=== PATIENT | female | born 1945 | race African-American/Black ===

== ENCOUNTER → 2017-05-22 | Outpatient (CLI) | payer MEDICARE, OTHER | END | disposition home or self-care (01) | LOC: RADMN 15:56 | PROVIDERS: ATTEND Orthopaedic Surgery | DX: M17.0 Bilateral primary osteoarthritis of knee (principal); I70.202 Unspecified atherosclerosis of native arteries of extremities, left leg; I70.201 Unspecified atherosclerosis of native arteries of extremities, right leg ==

== ENCOUNTER 2022-01-26 11:28 | Emergency (ER) | payer MEDICARE, OTHER ==
[~2022-01-26] VITALS: Ht 165.1 cm; Wt 109.1 kg
[2022-01-26] MEDS ORDERED: ACETAMINOPHEN 500 MG TABLET PO ONE (12:45)
[2022-01-26] MEDS ORDERED: BACITRACIN 0.9 GM PACKET OINTMENT TP ONE (12:45)
[2022-01-26] MEDS ORDERED: LIDOCAINE 1% 10 ML VIAL SQ ONE (13:00)
[2022-01-26 16:38] VITALS: BP 136/72
== END 2022-01-26 18:03 | disposition home or self-care (01) ==
LOC: EMS 11:28
DX: S01.511A Laceration without foreign body of lip, initial encounter (principal); M25.561 Pain in right knee; M25.562 Pain in left knee; E11.9 Type 2 diabetes mellitus without complications; E78.00 Pure hypercholesterolemia, unspecified; I10 Essential (primary) hypertension; E01.0 Iodine-deficiency related diffuse (endemic) goiter; I51.7 Cardiomegaly; Z91.018 Allergy to other foods; Z90.49 Acquired absence of other specified parts of digestive tract; Z90.710 Acquired absence of both cervix and uterus; Z98.890 Other specified postprocedural states; W18.39XA Other fall on same level, initial encounter; Y93.01 Activity, walking, marching and hiking; Y92.89 Other specified places as the place of occurrence of the external cause; Y99.8 Other external cause status
CPT/HCPCS: 12013; 70450; 71045; 72125; 73521; 73562; 99285; J3490